=== PATIENT | female | born 2000 | race Caucasian/White ===

== ENCOUNTER 2020-10-28 11:02 | Outpatient (REF) | payer OTHER, SELFPAY | END 2020-10-28 11:03 | disposition home or self-care (01) | LOC: HO.LNP 11:02 | PROVIDERS: Visit Provider Internal Medicine | DX: Z20.828 Contact with and (suspected) exposure to other viral communicable diseases (principal); J02.0 Streptococcal pharyngitis; R50.9 Fever, unspecified | CPT/HCPCS: U0003 ==